=== PATIENT | male | born 1965 | race Caucasian/White ===

== ENCOUNTER 2016-05-20 13:59 | Emergency (ER) | payer OTHER ==
[~2016-05-20] VITALS: Ht 165.1 cm; Wt 106.6 kg
[2016-05-20 14:02] VITALS: BP 154/97
[2016-05-20] MEDS ORDERED: TESSALON200 MG PO (15:07)
== END 2016-05-20 15:31 | disposition home or self-care (01) ==
LOC: EME 13:59
DX: J06.9 Acute upper respiratory infection, unspecified (principal)
CPT/HCPCS: 99281; 99284